=== PATIENT | female | born 1970 | race Caucasian/White ===

== ENCOUNTER 2017-03-27 15:52 | Emergency (ER) | payer OTHER ==
[~2017-03-27] VITALS: Ht 162.6 cm; Wt 68.2 kg
[~2017-03-27 15:52] MED LIST: ACET650T49 PO; ATV5X PO; CLOB0.0529 TOP; CYCL10TA6 PO; EPP3/2 IM; FLUT0.0529 NAE; GABA1CAP4 PO; LCTX PO; LIDO1OIN4 TOP; LORA10CA2 PO; MULT-513 PO; NAPR-1169 PO; OMEG-112 PO; TRAM-10 PO; TRAM1TAB14 PO; WLLSR150 PO
[2017-03-27 15:56] VITALS: TEMP 37.1; Ht 162.6 cm; Wt 68.2 kg
[2017-03-27 16:02] VITALS: O2SAT 99
[2017-03-27] MEDS ORDERED: DiphenhydrAMINE HCL 50 MG/ML VIAL IV STA (16:09)
[2017-03-27] MEDS ORDERED: SODIUM CHLORIDE 0.9% 1000ML 1,000 ML IV STA (16:09)
[2017-03-27] MEDS ORDERED: DEXAMETHASONE SOD INJ 4 MG/ML VIAL IV STA (16:09)
[2017-03-27] MEDS ORDERED: [UNRECOGNIZED DRUG - CODE] TOP (17:01)
[2017-03-27] MEDS ORDERED: MISCCAP80 PO (17:02)
[2017-03-27] MEDS ORDERED: LRS10 PO (17:07)
[2017-03-27] MEDS ORDERED: ZLF/100 PO (17:07)
[2017-03-27] MEDS ORDERED: DOCU100C22 PO (17:07)
[2017-03-27 17:14] LABS: BASO % 0.5 %; BASO ABS # 0.03 K/uL (0-0.2); COMPLETE YES; EOS % 3.4 %; HEMATOCRIT 34.3 % (37-47); IG% 0.2 %; LYMPH % 31.8 %; LYMPH ABS # 1.86 K/uL (1.2-3.4); MEAN CELL VOLUME 94.8 fL (80-100); MEAN CORPUSCULAR HEMOGLOBIN 30.9 pg (25-34); MEAN CORPUSCULAR HGB CONC 32.7 g/dl (32-36); MONO % 7.9 %; NEUT % 56.2 %; PLATELET COUNT 295 K/uL (130-400); RED BLOOD COUNT 3.62 M/uL (4.2-5.4); WHITE BLOOD COUNT 5.84 K/uL (4.8-10.8)
[2017-03-27 17:35] LABS: BUN/CREATININE RATIO 17.4 (10-20); CALCIUM 9.2 mg/dl (8.5-10.1); CREATININE 0.74 mg/dl (0.60-1.20); POTASSIUM 3.8 mmol/L (3.5-5.1)
[2017-03-27] MEDS ORDERED: EPP3/2 IM (18:30)
[2017-03-27] MEDS ORDERED: METH4PAK PO (18:30)
[2017-03-27 18:56] VITALS: BP 112/69; PULSE 99; O2SAT 100
--- NOTE | 2017-03-27 20:43 | EMERGENCY ROOM VISIT NOTE ---
History First contact with patient: 15:57 Chief Complaint: ALLERGIC REACTION Stated Complaint: POSSIBLE ALLERGIC REACTION Nursing Triage Summary: Pt reports she was stung by a bee to left arm. Allergy to bees. States that after she was stung, she felt shaky, nauseous, chills, some SOB. Denies any throat swelling. Pt administered her epi pen. Denies any new pain. Reports chronic hip and leg pain. History of Present Illness The patient is a 46 year old female who presents to the Emergency Room with complaints of a reaction after being stung by a bee around 3 PM this afternoon. She was working in her flower garden when she felt a sting. She has a prior history of allergic reaction to bee stings. The patient started to feel flushed , shaky and with mild shortness of breath within approximately 3-5 minutes after being stung, the patient self administered an EpiPen at 3:10 PM. At the current time, other than feeling her heart racing, she denies any shortness of breath, overall itchiness, lip/tongue/throat swelling, headache or nausea. Tetanus immunization is up-to-date. Review of Systems HEENT: Denies dizziness, visual problems, hearing loss, tinnitus. Denies difficulty swallowing or oral lesions. PULMONARY: Denies cough, current shortness of breath, sputum production or hemoptysis. CARDIOVASCULAR: Denies chest pain, palpitations, dyspnea on exertion, orthopnea or peripheral edema. GASTROINTESTINAL: Denies diarrhea, constipation, nausea, vomiting, or abdominal pain. GENITOURINARY: Denies dysuria, frequency, urgency or nocturia. NEUROLOGIC: Denies history of epilepsy, CVA, TIA or chronic headaches. MUSCULOSKELETAL: Denies history of joint tenderness/swelling. SKIN: Denies rashes or lesions. PSYCHIATRIC: Denies history of depression or mental illness. ENDOCRINE: Denies history of diabetes or thyroid disorders. Past Medical/Surgical History Medical Problems: (1) Laparotomy (2) Mature cystic teratoma of ovary Social History Smoking Status: Never Smoker Alcohol Use: occasionally Marital Status: single Occupation Status: disabled Current/Historical Medications Scheduled Baclofen (Baclofen), 10 MG PO HS Epinephrine (Epipen), 0.3 MG IM UD Epinephrine (Epipen), 0.3 MG IM UD Lidocaine/Epineph/Tetracaine (Lidocaine HCl), 1 APPLN TOP PRN UD Loratadine (Claritin), 10 MG PO DAILY Methylprednisolone (Medrol Dosepak), 0 PO DAILY Multivitamins/Minerals (Mvi With Minerals), 1 TAB PO DAILY Naproxen (Naprosyn), 500 MG PO DAILY Probiotic Product (Probiotic), 1 CAP PO DAILY Sertraline HCl (Sertraline HCl), 100 MG PO DAILY Tramadol Er (Ultram Er ), 300 MG PO DAILY Scheduled PRN Acetaminophen (Arthritis Pain Relief), 1 TAB PO Q6 PRN for Pain Clobetasol Propionate (Clobetasol Propionate), 1 APPL TOP UD PRN for skin impairment Cyclobenzaprine Hcl (Flexeril), 10 MG PO HS PRN for Muscle Spasms Docusate Sodium (Docqlace), 100 MG PO BID PRN for Constipation Tramadol (Ultram), 100 MG PO DAILY PRN for Pain Allergies Coded Allergies: BEE STING (Verified Allergy, Unknown, swelling, 06/24/16) Uncoded Nonscreenable Allergen (Verified Allergy, Unknown, RASH, 06/24/16) pumpkin and green resendiz ayan Physical Exam Vital Signs Date Time Temp Pulse Resp B/P Pulse Ox O2 Delivery O2 Flow Rate FiO2 03/27/17 18:56 99 20 112/69 100 03/27/17 18:07 90 16 100 Room Air 03/27/17 16:10 112 03/27/17 16:02 99 Room Air 03/27/17 15:56 99 Room Air 03/27/17 15:56 37.1 110 12 121/72 99 Room Air Physical Exam CONSTITUTIONAL: Healthy and well nourished. Alert and oriented X 3 with positive affect. Patient does not appear in any acute distress. HEENT: Normocephalic, atraumatic. Pupils equal, round and reactive. No facial edema appreciated. No scleral icterus or conjunctival injection. OROPHARYNX: No evidence for angioedema. No posterior frontal erythema. NECK: Full active range of motion without discomfort. No JVD or carotid bruits. RESPIRATORY: Clear to auscultation bilaterally with no wheezing, crackles, rhonchi or stridor. CARDIOVASCULAR: Mildly tachycardic with no murmurs, rubs or gallops. GASTROINTESTINAL: Bowel sounds present in all quadrants. Soft and nontender to palpation. MUSCULOSKELETAL: Full range of motion of all joints without discomfort. INTEGUMENTARY: No rash or other significant dermatologic conditions noted. Examination of the anterolateral left thigh shows evidence for puncture wound from the EpiPen. There is no significant soft tissue edema, erythema or ecchymosis. The patient has no other urticaria or soft tissue edema. NEUROLOGIC: Cranial nerves II-XII grossly intact. No focal neurologic deficits noted. Medical Decision & Procedures ER Provider Diagnostic Interpretation: My interpretation of an ECG shows a normal sinus rhythm of [address] elevation or other conduction abnormalities. Laboratory Results 03/27/17 16:24 Red Blood Count 3.62, Mean Corpuscular Volume 94.8, Mean Corpuscular Hemoglobin 30.9, Mean Corpuscular Hemoglobin Concent 32.7, Mean Platelet Volume 11.0, Neutrophils (%) (Auto) 56.2, Lymphocytes (%) (Auto) 31.8, Monocytes (%) (Auto) 7.9, Eosinophils (%) (Auto) 3.4, Basophils (%) (Auto) 0.5, Neutrophils # (Auto) 3.28, Lymphocytes # (Auto) 1.86, Monocytes # (Auto) 0.46, Eosinophils # (Auto) 0.20, Basophils # (Auto) 0.03 03/27/17 16:24 Test 03/27/17 16:24 White Blood Count 5.84 K/uL (4.8-10.8) Red Blood Count 3.62 M/uL (4.2-5.4) Hemoglobin 11.2 g/dL (12.0-16.0) Hematocrit 34.3 % (37-47) Mean Corpuscular Volume 94.8 fL (80-100) Mean Corpuscular Hemoglobin 30.9 pg (25-34) Mean Corpuscular Hemoglobin Concent 32.7 g/dl (32-36) Platelet Count 295 K/uL (130-400) Mean Platelet Volume 11.0 fL (7.4-10.4) Neutrophils (%) (Auto) 56.2 % Lymphocytes (%) (Auto) 31.8 % Monocytes (%) (Auto) 7.9 % Eosinophils (%) (Auto) 3.4 % Basophils (%) (Auto) 0.5 % Neutrophils # (Auto) 3.28 K/uL (1.4-6.5) Lymphocytes # (Auto) 1.86 K/uL (1.2-3.4) Monocytes # (Auto) 0.46 K/uL (0.11-0.59) Eosinophils # (Auto) 0.20 K/uL (0-0.5) Basophils # (Auto) 0.03 K/uL (0-0.2) RDW Standard Deviation 44.1 fL (36.4-46.3) RDW Coefficient of Variation 12.7 % (11.5-14.5) Immature Granulocyte % (Auto) 0.2 % Immature Granulocyte # (Auto) 0.01 K/uL (0.00-0.02) Anion Gap 10.0 mmol/L (3-11) Est Creatinine Clear Calc Drug Dose 89.2 ml/min Estimated GFR () 111.8 Estimated GFR (Non- 96.5 BUN/Creatinine Ratio 17.4 (10-20) Calcium Level 9.2 mg/dl (8.5-10.1) The above labs were reviewed and were grossly normal except for mild anemia. Medications Administered Medications (Trade) Dose Ordered Sig/Micheal Route Start Time Stop Time Status Last Admin Dose Admin Sodium Chloride (Nss 1000ml) 1,000 ml @ 999 mls/hr Q1H1M STAT IV 03/27/17 16:09 03/27/17 17:09 DC 03/27/17 16:50 999 MLS/HR Diphenhydramine HCl (Benadryl Inj) 50 mg NOW STAT IV 03/27/17 16:09 03/27/17 16:11 DC 03/27/17 16:50 50 MG Dexamethasone Sodium Phosphate (Decadron Inj) 10 mg NOW STAT IV 03/27/17 16:09 03/27/17 16:11 DC 03/27/17 16:57 10 MG ED Course Patient history and physical exam were performed. Nurse's notes were reviewed. Vital signs were reviewed and normal except for mild tachycardia. IV access was established, and basic labs were drawn. The patient was administered IV Benadryl and Decadron. She was also administered a liter normal saline bolus. Review of labs showed no acute findings except for mild anemia. The patient was observed for 2 hours with no adverse reactions. The patient reported feeling better and requested discharge home. The patient was provided a prescription for a Medrol Dosepak and EpiPen 2 pack. She was encouraged to take Benadryl and Zantac to further control her symptoms. She was instructed to return to the emergency department for any redeveloping reaction. She was also encouraged to keep cool over the next several days, and intermittently apply ice as needed to any areas of developing hives or itch. I did encourage her to follow-up with her PCP for recheck again in the next 2-3 days. The patient was happy with plan of care, and voiced understanding of all discharge instructions. Medical Decision The patient remained hemodynamically stable while in the emergency department. The patient denied any symptoms at the time of discharge. At this point, the patient was observed for 2 hours, and I do not feel that further hospital observation is needed. Impression Primary Impression: Allergic reaction Departure Information Prescriptions Epinephrine (EPIPEN) 0.3 Mg/0.3 Ml Inj 0.3 MG IM UD, #2 APPL Prov: Martinez Marvin PA 03/27/17 Methylprednisolone (MEDROL DOSEPAK) 4 Mg Kennedy 0 PO DAILY, #1 PKT Prov: Martinez Marvin PA 03/27/17 Referrals Zayra Howard D.O. (PCP) Patient Instructions My [facility] Problem Qualifiers Primary Impression: Allergic reaction Encounter type: initial encounter Qualified Codes: T78.40XA - Allergy, unspecified, initial encounter
== END 2017-03-27 18:57 | disposition home or self-care (01) ==
LOC: EDBD 15:52 → C.EDC 15:55
DX: T78.40XA Allergy, unspecified, initial encounter (principal); T63.441A Toxic effect of venom of bees, accidental (unintentional), initial encounter; X58.XXXA Exposure to other specified factors, initial encounter; Z79.899 Other long term (current) drug therapy